=== PATIENT | male | born 1985 | race Caucasian/White ===

== ENCOUNTER 2018-06-25 17:16 | Inpatient (IN) | payer OTHER ==
[~2018-06-25] VITALS: Ht 182.9 cm; Wt 112.6 kg
--- NOTE | ~2018-06-25 | CON ---
[place], [place] REPORT OF CONSULTATION NAME: WILL VILLALOBOS [facility] #: [id number] UNIT #: [id number] ROOM: 402 DOCTOR: SHIRA BARKSDALE MD BIRTHDATE: [birth year] DOS: 06/26/2018 GASTROENDOSCOPIC REPORT HISTORY OF PRESENT ILLNESS: This is a 33-year-old patient, who has presented with chief complaint of abdominal pain, which started yesterday afternoon and he stops eating. He is nauseated, had several bowel movements as well. The patient was evaluated in the Emergency Room, was found to have white blood cell of 21 with neutrophil of 87. Abdominal pain continued. Chest x-ray, no acute process. Comprehensive metabolic panel, GFR is greater than 60 and creatinine is normal. Liver function tests, lipase within normal limits. Urinalysis, 4+ bacteria. Drug screening was opiate positive, Dilaudid given on the floor. Lactic acid is 1.66. CT scan of the chest, there is fluid filled throughout the colon suggesting diarrhea, possible inflammatory process, may be some fatty infiltration of internal lumen suggesting terminal ileitis. Basic metabolic panel is within normal limits. Phosphorus is 2.1. Magnesium is 2.0. Hemoglobin A1c is 2.5. INR is 1.0. B12 and folate are within normal limits. Vitamin B12 is 17 on the lower side. White blood cell has dropped to 16 with H and H of 13 and 40. PAST MEDICAL HISTORY: Associated with borderline obesity, abdominal pain, gastroesophageal reflux, and possible systemic hypertension. PAST SURGICAL HISTORY: Nil. MEDICATIONS AT HOME: None. ALLERGIES: No known medications. SOCIAL HISTORY: Nonsmoker, rare alcohol consumer. FAMILY HISTORY: Noncontributory. REVIEW OF SYSTEMS: In general: HEENT: Denies double vision, blurred vision. RESPIRATORY: Denies acute shortness of breath. CARDIOVASCULAR: Denies acute chest pain. DIGESTIVE SYSTEM: Abdominal pain, cross abdominal pattern; nausea, vomiting, a few liquid stool. No hematemesis, no hematochezia. PHYSICAL EXAMINATION: VITAL SIGNS: Stable. HEENT: Head is normocephalic, nontraumatic. Eyes: Pupils are round, reactive. Sclerae nonicteric. Mouth and buccal mucosa benign. NECK: Supple. No thyromegaly. No cervical lymphadenopathy. CHEST: Symmetric anatomy, equal expansion. No wheeze. No rhonchi. HEART: Normal sinus rhythm. No gallop. No murmur. ABDOMEN: Slightly obese, soft. No hepato-organomegaly. Bowel sounds present. No pulsatile mass. Nonspecific tenderness. EXTREMITIES: No cyanosis. No pedal edema. [place], [place] REPORT OF CONSULTATION NAME: WILL VILLALOBOS UNIT #: [id number] ROOM: 402 DOCTOR: SHIRA BARKSDALE MD BIRTHDATE: [birth year] NEUROLOGIC: He is alert and oriented to time, place, and person. LABORATORY DATA: Reviewed. Records reviewed. Data reviewed. IMPRESSION: Abdominal pain, nausea, vomiting, history of gastroesophageal reflux, history of diarrhea, and abnormal lab results. PLAN AND DISCUSSION: Ruling out viral gastroenteritis and otherwise peptic ulcer disease or otherwise colitis, workup in progress, endoscopy of upper and lower tract would be urgently provided for diagnosis of ambiguous abdominal pain. SHIRA BARKSDALE MD CM:CONSTR:REPORT OF CONSULTATION 1225 06/27/18 0028 interface
--- NOTE | ~2018-06-25 | EKG ---
[place], [place] ELECTROCARDIOGRAM REPORT NAME: WILL VILLALOBOS UNIT #: [id number] ROOM: 402 DOCTOR: SCOTTY DRAFT REPORT BIRTHDATE: [birth year] [facility] Test Date: 2018-06-26 Test Time: 00:56:03 Pat Name: WILL VILLALOBOS Department: Room: 402 2 Gender: M Channeler: Sylvia Anguiano : 1985 Requested By: MAHI CHERY Order Number: [id number] Reading MD: Marisa Oliveros Measurements Intervals Miller Rate: 111 P: 32 PA: 124 QRS: 61 QRSD: 96 T: 36 QT: 337 QTc: 458 Interpretive Statements Sinus tachycardia Atrial premature complex Electronically Signed On 06-26-2018 12:51:43 PST by Marisa Oliveros CM:EKGRPT:ELECTROCARDIOGRAM REPORT [id number] MAHI FAJARDO DRAFT REPORT MAHI CHERY
--- NOTE | ~2018-06-25 | O ---
[place], [place] OPERATIVE NOTE NAME: WILL VILLALOBOS UNIT #: [id number] ROOM: 402 DOCTOR: SHAMIR DENISSHIRA BIRTHDATE: [birth year] DOS: 06/26/2018 GASTROENDOSCOPIC REPORT HISTORY OF PRESENT ILLNESS: A 33-year-old patient who has presented with chief complaint of nausea, vomiting, or diarrhea. PROCEDURE: Today's procedure part of investigation is panendoscopy plus colonoscopy. PREMEDICATION: Propofol. SCOPE: Olympus forward-viewing gastroscope Q10 video. REPORT: After putting the patient in left lateral position and application of lubricant to the scope, the scope was introduced. Thereafter, under direct visualization, advanced through the length of esophagus without difficulty. Lower end of the esophagus shows multiple linear ulcerations, width of approximately 5 mm diameter. Scope was negotiated into gastric pouch. Gastritis seen. Gastric content and liquids were suctioned out. Duodenal bulb, second and third part within normal limits. Antral biopsy was obtained for H. pylori. GI reflection of the scope reveals cardia to be benign. Air was suctioned out. The patient was extubated, tolerated the procedure well. IMPRESSION: Multiple linear ulcers secondary to gastroesophageal reflux, gastritis, and status post biopsy. Hiatal hernia 2 cm. PLAN AND DISCUSSION: Protonix 40 mg daily, antireflux measures, elevation of the head of the bed; dietary management and we are going to proceed with colonoscopy today. INDICATIONS: The patient has presented with chief complaint of diarrhea, abdominal pain, undergoing investigation. PROCEDURE: Today's procedure part of investigation is colonoscopy plus biopsy and photographic series. PREMEDICATION: Propofol. SCOPE: Olympus forward-viewing colonoscope 10L video. REPORT: After putting the patient in left lateral position and application of lubricant to the scope, the scope was introduced. Thereafter, under direct visualization, advanced through the length of colon without difficulty. Segmental colitis of approximately 15 cm in hepatic flexure was noticed. This is consistent with early ischemic colitis. Biopsies obtained. Photographic series obtained. Base of cecum explored. No acute pathology otherwise noticed. The patient extubated, tolerated the procedure well. IMPRESSION: Ischemic colitis at hepatic flexure, segmental approximately 15 cm. [place], [place] OPERATIVE NOTE NAME: WILL VILLALOBOS UNIT #: [id number] ROOM: [facility] DOCTOR: SHAMIR DENIS,SHIRA BIRTHDATE: [birth year] The stage of it is early. Hiatal hernia, 2 cm adductus. PLAN AND DISCUSSION: This patient can be kept on clear liquid and Flagyl 500 mg q.8. hours only. No other antibiotics needed. Observation in a couple of days and discharge on follow on Protonix 40 mg daily for his gastroesophageal finding. SHIRA BARKSDALE MD CM:OPRECORD:OPERATIVE NOTE [id number] SHIRA BARKSDALE MD 06/26/18 1905 interface
[2018-06-25 17:17] VITALS: BP 153/88
[2018-06-25 17:55] LABS: BASO # 0.1 10*3/uL (0.0-0.1); BASO % 0.2 % (0.0-1.0); EOS # 0.1 10*3/uL (0.0-0.4); EOS % 0.2 % (1.0-4.0); HEMATOCRIT 50.6 % (42.0-52.0); HEMOGLOBIN 16.9 g/dl (14.0-18.0); LYMPH # 1.7 10*3/uL (1.3-4.4); LYMPH % 7.8 % (27.0-41.0); MEAN CELL VOLUME 88.8 fl (80.0-94.0); MEAN CORPUSCULAR HGB 29.6 pg (27.0-31.0); MEAN CORPUSCULAR HGB CONC 33.4 g/dl (33.0-37.0); MEAN PLATELET VOLUME 10.8 fl (9.6-12.3); MONO # 0.8 10*3/uL (0.1-1.0); MONO % 3.5 % (3.0-9.0); NEUT # 19.3 10*3/uL (2.3-7.9); NEUT % 87.9 % (47.0-73.0); PLATELET COUNT AUTOMATED 361 10*3/uL (130-400); RED CELL DISTRI WIDTH 13.6 % (0-14.5); WHITE BLOOD COUNT 21.9 10*3/uL (4.8-10.8)
[2018-06-25 18:13] LABS: BUN 26 mg/dl (7-24)
[2018-06-25 18:15] VITALS: BP 158/92
--- NOTE | 2018-06-25 18:44 | NUR ---
PT WITHOUT PAIN RELIEF FROM MEDS AN UNABLE TO URINATE @ THIS TIME,TATY CONTRERAS APRN AWARE.
[2018-06-25 18:55] LABS: ALBUMIN 3.8 gm/dl (3.1-4.5); ALKALINE PHOSPHATASE 70 U/L (45-117); CHLORIDE 107 mmol/L (98-107); CREATININE 1.05 mg/dL (0.70-1.30); LIPASE 94 U/L (73-393); POTASSIUM 3.9 mmol/L (3.5-5.1); SGOT/AST 18 IU/L (3-35); SGPT/ALT 37 U/L (12-78); SODIUM 140 mmol/L (136-145); TOTAL PROTEIN 8.1 gm/dL (6.4-8.2)
[2018-06-25 19:26] VITALS: BP 122/90
--- NOTE | 2018-06-25 19:27 | NUR ---
PT WITH DECREASED PAIN FROM MEDICATION ADMINISTRATION,SAFETY PRECAUTIONS INTACT AND CALL LIGHT WITHIN REACH.
--- NOTE | 2018-06-25 20:02 | NUR ---
PT PRESENTED OPTION FOR CATHETER D/T "I CAN'T GO(URINATE)YET"! AFTER 2 LITERS 0.9NS,TATY CONTRERAS PUFF IRON OPERATOR IN TO SPEAK WITH PT 2 THIS TIME.
[2018-06-25 20:21] LABS: BILIRUBIN 1+ (NEGATIVE); BLOOD NEGATIVE (NEGATIVE); CLARITY SL CLOUDY (CLEAR); COLOR YELLOW (YELLOW); GLUCOSE NEGATIVE (NEGATIVE); KETONE NEGATIVE (NEGATIVE); LEUKO ESTERASE NEGATIVE (NEGATIVE); NITRITE NEGATIVE (NEGATIVE); PH 5.5 (5.0-9.0); SPECIFIC GRAVITY >= 1.030 (1.005-1.030); UROBILINOGEN 0.2 E.U./dl (0.2-1.0)
[2018-06-25 20:31] LABS: URINE AMPHETAMINES < 1000 (1000ng/ml); URINE BARBITURATES < 200 (200ng/ml); URINE BENZODIAZEPINES < 200 (200ng/ml); URINE CANNABINOIDS (THC) < 50 (50ng/ml); URINE COCAINE < 300 (300ng/ml); URINE METHADONE < 300 (300ng/ml); URINE OPIATES > 300 (300ng/ml)
[2018-06-25 20:32] LABS: BACTERIA 4+; MUCOUS 1+
[2018-06-25 20:38] LABS: URINE PHENCYCLIDINE < 25 (25ng/ml)
--- NOTE | 2018-06-25 21:43 | NUR ---
PT WITH EPISODE OF DIARRHEA WHILE IN ED AND PT PROVIDED ADDITIONAL CLOTHES (PAJAMA PANTS),GOWN AND BED CLEANED,PT POSITIONED FOR COMFORT AND WILL CONTINUE TO MONITOR.
--- NOTE | 2018-06-25 23:09 | NUR ---
PT WITH LARGE SCABBED AREA TO LFT KNEE NOTED WITH PICTURE TAKEN PT STATING "THAT(LFT KNEE) HAS BEEN THAT WAY FOR A COUPLE YEARS".
[2018-06-25 23:15] VITALS: BP 135/93
[2018-06-25 23:50] VITALS: BP 138/78
--- NOTE | 2018-06-25 23:50 | NUR ---
A 33, admitted to , under the services of REESE Santos DO with a diagnosis of ILEITIS, SEVERE SEPSIS. Chief complaint is ABDOMINAL PAIN. Patient arrived via bed from ER. Monitor applied. Initial assessment completed. Vital signs taken and recorded. REESE SANTOS DO notified of admission to the unit. Orders received. See assessment for past medical history, medications and allergies. Patient and/or family oriented to unit. [facility] visitation policy reviewed. Clothing/patient valuable form completed. HENRIQUE NIEVES
[2018-06-26] VITALS (10 sets, daily range): BP systolic 98–145; BP diastolic 55–84
--- NOTE | 2018-06-26 00:05 | NUR ---
CONSULTED DR. BARKSDALE AT THIS THIS TIME PER REQUEST OF DR CHERY. NOTIFIED DR. BARKSDALE OF WHAT PATIENT CAME INTO ER WITH, NOTIFIED HIM OF LABS AND CT ABD/PEL. DR. BARKSDALE ORDERED THAT PATIENT BE CONTINUED ON ANTIBIOTIC, NOTIFIED HIM THAT IT WAS ZOSYN HE STATED THAT WAS FINE. HE STATED A CBC AND BMP IN THE MORNING AND TO KEEP THE PATIENT NPO
--- NOTE | 2018-06-26 00:47 | NUR ---
OK TO CHANGE EKG ORDERED FROM ROUTINE TO STAT PER DR. SWANSON
--- NOTE | 2018-06-26 01:18 | NUR ---
PRN DILAUDID GIVEN FOR PT COMPLAINTS OF ABDOMINAL PAIN RATING IT 7/10. CALL LIGHT WITHIN REACH, WILL MONITOR
--- NOTE | 2018-06-26 04:48 | NUR ---
WILL VILLALOBOS [id number] Please refer to the physician's history and physical for past medical history, comorbid conditions, and allergies. Diagnosis: ILEITIS, SEVERE SEPSIS Germain Score: 23,LOW OR NO RISK WOUND DESCRIPTIONS: Location of the wound: left knee Thickness: Partial Size: 11.0cm x 14.0cm x <0.1cm Tunneling: none Undermining: none Sinus Tract: none Presence of Exudate: none Amount: None Color: Red, brown Odor: None Periwound Skin Appearance: Erythema Wound edges: approximated Pain (associated with wound): none at time of assessment How does patient state this happened? pt stated it has been here for about 3-4 years off and it comes back due to him scratching it Surface the patient is resting on: Isoflex SKIN PREVENTION RECOMMENDATION: 1. Pressure redistribution support surface as appropriate 2. Elevate heels 3. Remove boots/TEDS every shift and reapply 4. Head of bed 30 degrees as tolerated 5. Assess nutrition and hydration 6. Manage moisture 7. Avoid the use of containment devices while in bed 8. Use absorptive products on surfaces limit layers of linens on bed 9. Turn and reposition every 1-2 hours in bed and every 1 hour in chair as tolerated 10. Weight shifts every 15 minutes while up in chair 11. Offloading with pillows or device to keep heels elevated off bed 12. Monitor skin at least every shift 13. Inspect under medical devices twice a day WOUND TREATMENT RECOMMENDATIONS: Cleanse left knee with soap and water and apply aquaphor daily. Patient denies wanting outpatient wound care at this time.
[2018-06-26 06:32] LABS: HEMATOCRIT 40.8 % (42.0-52.0); HEMOGLOBIN 13.4 g/dl (14.0-18.0); MEAN CELL VOLUME 90.3 fl (80.0-94.0); MEAN CORPUSCULAR HGB 29.6 pg (27.0-31.0); MEAN CORPUSCULAR HGB CONC 32.8 g/dl (33.0-37.0); MEAN PLATELET VOLUME 11.2 fl (9.6-12.3); PLATELET COUNT AUTOMATED 269 10*3/uL (130-400); RED BLOOD COUNT 4.52 10*6/uL (4.50-5.90); RED CELL DISTRI WIDTH 13.7 % (0-14.5); WHITE BLOOD COUNT 16.1 10*3/uL (4.8-10.8)
[2018-06-26 06:37] LABS: BUN 24 mg/dl (7-24); CHLORIDE 109 mmol/L (98-107); CHOLESTEROL 122 mg/dL (<200); CREATININE 1.01 mg/dL (0.70-1.30); FREE T4 1.08 ng/dl (0.76-1.46); HDL CHOLESTEROL 39 mg/dl (40-60); LDL CHOLESTEROL 69 mg/dL (9-159); PHOSPHOROUS 2.1 mg/dL (2.5-4.9); POTASSIUM 4.4 mmol/L (3.5-5.1); SODIUM 139 mmol/L (136-145); TRIGLYCERIDES 72 mg/dl (<150); VLDL CHOLESTEROL 14 mg/dL (6-40)
[2018-06-26 07:05] LABS: ACT PARTIAL THROMBO TIME 21.9 SECONDS (20.8-31.5)
[2018-06-26 07:09] LABS: VITAMIN D, 25-HYDROXY 17.3 ng/mL (30-100)
[2018-06-26 07:41] LABS: TOTAL CELLS COUNTED 100 #CELLS
[2018-06-26 07:42] LABS: PLATELET SUFFICIENCY NORMAL (NORMAL)
--- NOTE | 2018-06-26 08:00 | NUR ---
[employer] Mechanic in to talk to patient. Patient states lives at an apartment with his checking in on him. There are 12 steps in the home. Physician: Dr. Miesha Vilchis in [facility] Pharmacy: [facility] Home health services: none Patient's level of ADLs: INDEPENDENT Patient has working utilities: yes DME: none Follow-up physician's appointment after d/c: he prefers to make his own follow up appt when he is able to return home Does patient want to access PORTAL?: no Discharge plan discussed with patient. He lives with his in [facility]. He is currently working about a half hour from the hospital [employer]. He is staying in an apartment with his and colleagues checking in on him. He is independent in his ADLs and ambulation. Discussed any home needs and he states when he leaves the hospital he will go back to work. When medically stable he will be discharged to home. RUTH HILL
--- NOTE | 2018-06-26 08:40 | NUR ---
AWAKE, ALERT, AND ORIENTED X 3. VERY COOPERATIVE. COMPLAINT OF PAIN RATED 7 OUT OF 10. ADMINISTED PRN MEDICATION. BED IN LOWEST POSITION. CALL LIGHT WITHIN REACH. CHARMAINE ROSENBERG.[facility]
--- NOTE | 2018-06-26 09:17 | NUR ---
PATIENT STATED THAT PAIN HAD DEMINISHED. RATED 5 OUT OF 10. NO COMPLAINTS AT THIS TIME. BED IN LOWEST POSITION. CALL LIGHT WITHIN REACH. CHARMAINE ROSENBERG.[facility]
--- NOTE | 2018-06-26 09:53 | NUR ---
Dr. garcia notified of wound care recommendations.
--- NOTE | 2018-06-26 11:20 | NUR ---
PATIENT REFUSED A BATH AND TO CHANGE GOWN. CHANGED HIS PANTS. FAMILY IS CURRENTLY VISITING. NO COMPLAINTS AT THIS TIME. BED IN LOWEST POSITION. CALL LIGHT IN REACH. CHARMAINE ROSENBERG.[facility]
--- NOTE | 2018-06-26 11:45 | NUR ---
DR. BARKSDALE IN TO SEE PT, FOR PROCEDURE TODAY, ORDERS GIVEN DEREK DIEGO SPNRCC
--- NOTE | 2018-06-26 12:00 | NUR ---
PT HAD LARGE TAP WATER ENEMA, TOLERATED WELL, RESULTS CLEAR WITH YELLOW TINGE OF COLOR, STOOL SPECIMEN SENT TO LAB, TO SURGERY FOR PROCEDURE DEREK MONTENEGRO
--- NOTE | 2018-06-26 13:35 | NUR ---
RECEIVED PT BACK FROM SURGERY, CONDITION STABLE DEREK MONTENEGRO
--- NOTE | 2018-06-26 13:45 | NUR ---
PT IN SEVERE PAIN, NURSE NOTIFIED TOO EARLY FOR PAIN MED, FAMILY AT THE BEDSIDE, PT VITAL SIGNS STABLE DEREK REYESCC
--- NOTE | 2018-06-26 13:55 | NUR ---
PATIENT MEDICATED WITH IV DILAUDID AT THIS TIME PER PRN ORDER FOR COMPLAINTS OF ABDOMINAL PAIN 01/19. WILL MONITOR FOR EFFECTIVENESS.
[2018-06-27] VITALS: BP 130/66
[2018-06-27 05:55] LABS: BASO % 0.2 % (0.0-1.0); EOS # 0.1 10*3/uL (0.0-0.4); EOS % 0.6 % (1.0-4.0); HEMATOCRIT 37.3 % (42.0-52.0); HEMOGLOBIN 12.3 g/dl (14.0-18.0); LYMPH # 2.5 10*3/uL (1.3-4.4); LYMPH % 20.3 % (27.0-41.0); MEAN CELL VOLUME 90.3 fl (80.0-94.0); MEAN CORPUSCULAR HGB 29.8 pg (27.0-31.0); MEAN PLATELET VOLUME 10.8 fl (9.6-12.3); MONO % 8.3 % (3.0-9.0); NEUT # 8.7 10*3/uL (2.3-7.9); NEUT % 70.1 % (47.0-73.0); PLATELET COUNT AUTOMATED 275 10*3/uL (130-400); RED BLOOD COUNT 4.13 10*6/uL (4.50-5.90); RED CELL DISTRI WIDTH 13.4 % (0-14.5); WHITE BLOOD COUNT 12.3 10*3/uL (4.8-10.8)
[2018-06-27 06:08] LABS: CHLORIDE 108 mmol/L (98-107); POTASSIUM 3.6 mmol/L (3.5-5.1); SODIUM 141 mmol/L (136-145)
[2018-06-27 06:27] LABS: BUN 18 mg/dl (7-24); CREATININE 0.73 mg/dL (0.70-1.30)
--- NOTE | 2018-06-27 07:58 | NUR ---
24 HR chart check completed.
[2018-06-27 08:00] VITALS: BP 126/62
--- NOTE | 2018-06-27 08:30 | NUR ---
DR MORALES PRESENT ON FLOOR TO ASSESS PATIENT AND DISCUSS PLAN OF CARE
--- NOTE | 2018-06-27 08:53 | NUR ---
C/O ABD PAIN RATING AN 8 AND NAUSEA, MEDICATED WITH DILAUDID AND ZOFRAN IV PER PRN ORDER. CALL LIGHT WITHIN REACH. WILL MONITOR FOR EFFECTIVENESS
--- NOTE | 2018-06-27 09:00 | NUR ---
RESTING IN BED. RESPIRATIONS EASY. LUNGS CLEAR. PULSE OX 96% RA. ABD OBESE WITH NORMOACTIVE BOWEL SOUNDS, C/O LOOSE STOOLS. LEFT KNEE ASSESSED AND TREATED PER ORDER. OFFERED AND EDUCATED REGARDING TEDS, DECLINED. IV FLUIDS INFUSING PER ORDER. CALL LIGHT WITHIN REACH.
--- NOTE | 2018-06-27 10:00 | NUR ---
MEDS EFFECTIVE. SLEEPING BUT AWAKENS EASY. ABD PAIN IMPROVED AND PATIENT STATES HE WAS ABLE TO CONSUME CHICKEN BROTH WITHOUT NAUSEA. CALL LIGHT WITHIN REACH. NO VOICED COMPLAINTS
[2018-06-27 12:00] VITALS: BP 143/86
--- NOTE | 2018-06-27 13:00 | NUR ---
INCONT OF STOOL. PATIENT AND LINENS CHANGED
[2018-06-27 16:00] VITALS: BP 139/77
--- NOTE | 2018-06-27 16:03 | NUR ---
C/O ABD PAIN RATING A 7 AND NAUSEA - MEDICATED WITH DILAUDID AND ZOFRAN IV PER PRN ORDER. CALL LIGHT WITHIN REACH. WILL MONITOR FOR EFFECTIVENESS
--- NOTE | 2018-06-27 17:15 | NUR ---
VISITING WITH AND PLAYING VIDEO GAMES. STATES RELIEF FROM EARLIER MEDS. IV FLUIDS MAINTAINED. CALL LIGHT WITHIN REACH. NO VOICED COMPLAINTS
[2018-06-27 20:00] VITALS: BP 132/74
--- NOTE | 2018-06-27 21:10 | NUR ---
ASSUMED CARE OF PATIENT. PATIENT IS RESTING IN BED WITH EASY AND REGULAR RESPERS ON ROOM AIR. ASSESSMENT IS COMPLETE AT THIS TIME WITH NO S/S OF DISTRESS NOTED AT THIS TIME. MEDICATED PATIENT WITH PRN DILAUDID AND ZOFRAN FOR C/O NAUSEA AND ABDOMINAL PAIN RATING A 5/10. PATIENT TOLERATED WELL. BED IS LOW, LOCKED, AND CALL LIGHT IS WITHIN REACH. WILL MONITOR EFFECT OF MEDICATIONS. SEE SHIFT ASSESSMENT.
--- NOTE | 2018-06-27 22:00 | NUR ---
PRN MEDICATIONS SEEM TO BE EFFECTIVE, PATIENT IS SLEEPING WITH EASY AND REGULAR RESPERS ON ROOM AIR. CALL LIGHT IS WITHIN REACH.
[2018-06-28] VITALS: BP 120/78
[2018-06-28 05:54] LABS: ALKALINE PHOSPHATASE 53 U/L (45-117); BUN 12 mg/dl (7-24); CHLORIDE 107 mmol/L (98-107); CREATININE 0.92 mg/dL (0.70-1.30); PHOSPHOROUS 2.2 mg/dL (2.5-4.9); POTASSIUM 3.6 mmol/L (3.5-5.1); SGOT/AST 15 IU/L (3-35); SGPT/ALT 27 U/L (12-78); SODIUM 141 mmol/L (136-145); TOTAL PROTEIN 6.9 gm/dL (6.4-8.2)
[2018-06-28 06:06] LABS: BASO % 0.5 % (0.0-1.0); EOS # 0.2 10*3/uL (0.0-0.4); EOS % 2.9 % (1.0-4.0); HEMATOCRIT 40.2 % (42.0-52.0); LYMPH # 2.5 10*3/uL (1.3-4.4); LYMPH % 30.8 % (27.0-41.0); MEAN CELL VOLUME 90.7 fl (80.0-94.0); MEAN CORPUSCULAR HGB 29.3 pg (27.0-31.0); MEAN CORPUSCULAR HGB CONC 32.3 g/dl (33.0-37.0); MEAN PLATELET VOLUME 10.9 fl (9.6-12.3); MONO # 0.8 10*3/uL (0.1-1.0); MONO % 10.3 % (3.0-9.0); NEUT # 4.4 10*3/uL (2.3-7.9); NEUT % 55.1 % (47.0-73.0); PLATELET COUNT AUTOMATED 274 10*3/uL (130-400); RED BLOOD COUNT 4.43 10*6/uL (4.50-5.90); RED CELL DISTRI WIDTH 13.2 % (0-14.5)
--- NOTE | 2018-06-28 07:40 | NUR ---
24 HR chart check completed.
[2018-06-28 08:00] VITALS: BP 130/82
--- NOTE | 2018-06-28 08:30 | NUR ---
SLEEPING, AWAKENS EASILY. RESPIRATIONS EASY. LUNGS CLEAR. PULSE OX 99% RA. ABD SOFTLY DISTENDED WITH HYPOACTIVE BOWEL SOUNDS, C/O DIARRHEA. TRACE BLE EDEMA, CONTINUES TO DECLINES TEDS. IV FLUIDS D/C'D PER ORDER. CALL LIGHT WITHIN REACH. NO VOICED COMPLAINTS
--- NOTE | 2018-06-28 09:10 | NUR ---
PATIENT AMBULATING TO SHOWER. NO DISTRESS NOTED.
--- NOTE | 2018-06-28 09:40 | NUR ---
PATIENT RETURNED FROM SHOWERING. DR GOLDSTEIN AND ANDREW PRESENT ON FLOOR TO DISCUSS PLAN OF CARE
--- NOTE | 2018-06-28 10:10 | NUR ---
DISCUSSED CHANGE IN DIET AND MEDS, PATIENT VOICES UNDERSTANDING
[2018-06-28 12:00] VITALS: BP 132/87
--- NOTE | 2018-06-28 12:15 | NUR ---
SLEEPING. IMMEDIATELY UPON AWAKENING, C/O ABD PAIN RATING AN 5 AND NAUSEA. MEDICATED WITH NORCO PER PRN ORDER AND ZOFRAN IV, SEE EMAR. LUNCH TRAY ARRIVES AND PATIENT IMMEDIATELY CONSUMED 100% COTTAGE CHEESE WITHOUT DIFFICULTY. CALL LIGHT WITHIN REACH. PRESENT AT BEDSIDE
[2018-06-28] MEDS ORDERED: FLAGYL500 MG PO (13:53)
[2018-06-28] MEDS ORDERED: NORCO 5-325 TA1 EACH PO (13:53)
[2018-06-28] MEDS ORDERED: PROTONIX40 MG PO (13:53)
--- NOTE | 2018-06-28 13:55 | NUR ---
DR BARKSDALE CONTACTED. PATIENT OK FOR D/C FROM GI STANDPOINT
--- NOTE | 2018-06-28 16:00 | NUR ---
PATIENT EAGER FOR D/C. PAPER WORK AND SCRIPTS REVIEWED. RETURN TO WORK SLIP PROVIDED. DECLINES WOUND CARE PHOTOS STATING "I JUST WANT TO GO."
--- NOTE | 2018-06-28 16:00 | NUR ---
Discharge instructions reviewed with patient/family. Patient receptive and verbalizes understanding. Written instructions given to patient/family. PATIENT OFFERED WC FOR D/C, DECLINED. AMBULATED OFF FLOOR WITH BELONGINGS IN CARE OF BRANDEEANIYA
== END 2018-06-28 16:00 | disposition home or self-care (01) | DRG 872 ==
LOC: ED 17:16 → EDHOLD 22:54 → 4E 22:54
PROVIDERS: Internal Medicine; Internal Medicine Nephrology; Nurse Practitioner; ADMIT Internal Medicine
PROC: 0DB68ZX Excision of Stomach, Via Natural or Artificial Opening Endoscopic, Diagnostic (ICD-10-PCS; principal; 2018-06-26)
PROC: 0DJD8ZZ Inspection of Lower Intestinal Tract, Via Natural or Artificial Opening Endoscopic (ICD-10-PCS; principal; 2018-06-26)
DX: A41.9 Sepsis, unspecified organism (principal); E87.2 Acidosis; K55.9 Vascular disorder of intestine, unspecified; K22.10 Ulcer of esophagus without bleeding; K52.9 Noninfective gastroenteritis and colitis, unspecified; K29.70 Gastritis, unspecified, without bleeding; K21.9 Gastro-esophageal reflux disease without esophagitis; E66.9 Obesity, unspecified; Z82.5 Family history of asthma and other chronic lower respiratory diseases; R65.20 Severe sepsis without septic shock; D72.810 Lymphocytopenia; R73.9 Hyperglycemia, unspecified; R80.9 Proteinuria, unspecified; G47.33 Obstructive sleep apnea (adult) (pediatric); K44.9 Diaphragmatic hernia without obstruction or gangrene; Z68.33 Body mass index [BMI] 33.0-33.9, adult